=== PATIENT | male | born 1940 | race Caucasian/White ===

== ENCOUNTER → 2017-08-25 | Outpatient (CLI) | payer MEDICARE, OTHER ==
[~2017-08-25] MED LIST: AMLO1TAB67 PO; BENICAR PO; GLUC100026 PO; IOPAMIDOL 76% 50 ML INFUS BTL 50 ML ONE; IOPAMIDOL 76% 75 ML INFUS BTL 75 ML ONE; MULT-865 PO; OLM20 PO; PNEI IJ; PNEU0.5D3 IM; [UNRECOGNIZED DRUG - OTHER] PO
--- NOTE | 2017-08-25 12:10 | RADIOLOGY IMAGING REPORT ---
FACILITY: [facility] PATIENT NAME: Manny Bowles : 1940 MR: [id number] V: [id number] EXAM DATE: ORDERING PHYSICIAN: AGNES OPSADA TECHNOLOGIST: Location: [facility] Patient: Manny Bowles : 1940 Visit/Account:[id number] Date of Sevice: 08/25/2017 CTA CHEST ABD PEL W WO CONT HISTORY: Abdominal aortic aneurysm; follow-up. TECHNIQUE: CT angiography of the chest, abdomen and pelvis with intravenous contrast. Sagittal, cor onal and slab 3D coronal MIP reconstructed images were also created for further evaluation and interp retation. One of the following dose optimization techniques was utilized in the performance of this exam: Autom ated exposure control; adjustment of the mA and/or kV according to the patient's size; or use of an i terative reconstruction technique. Specific details can be referenced in the facility's radiology C T exam operational policy. CONTRAST: 120 mL Isovue-370 IV COMPARISON: 09/13/2016 FINDINGS: VASCULAR FINDINGS: Heart size normal. Atherosclerotic calcifications coronary arteries. Thoracic aorta mildly atherosclerotic but normal caliber and without evidence of dissection or lumina l narrowing. Ascending aorta 3.7 cm maximum diameter. Abdominal aorta moderately to severely atherosclerotic. Infrarenal abdominal aortic aneurysm status post bifurcated endoluminal stent repair. [place] aneurysm sac now 5.4 x 5.1 cm in greatest transvers e and AP dimensions (previously 5.5 x 5.4 cm utilizing similar measurement technique). Previously de scribed site of type II endoleak at the L2 level only faintly persists and is less apparent than on p rior exam (series 5/image 114). Additional previously described site of tight II endoleak resolved. No new or worsening leak. Stent graft stable in position. Separate origins splenic and common hepatic arteries, normal variant. 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 NONVASCULAR FINDINGS: Chest: Calcified left upper lobe pulmonary nodule and left hilar lymph nodes consistent with benign granulom as. No adenopathy. Very mild and benign-appearing biapical pleural parenchymal pulmonary scarring. Micronodules within the lateral left lung base and along right minor fissure are unchanged. Degener ative changes thoracic spine. Abdomen/pelvis: Several too small to characterize low attenuating hepatic lesions, likely cysts. Numerous small ston es within an otherwise unremarkable appearing gallbladder. Punctate calcifications within spleen con sistent with benign granulomas. Pancreas, adrenals and right kidney unremarkable. Two small to ari acterize low attenuating lesion left renal cortex, likely cyst. Severe diverticulosis sigmoid colon. No adenopathy. No free fluid. Very small fat-containing left inguinal hernia. Likely sequela of prior left inguinal hernia repair. Sequela of left femoral cutdown. Degenerative changes lumbar spi ne. Chronic mildly severe compression deformity of L4 vertebral body. IMPRESSION: 1. Abdominal aortic aneurysm status post endograft repair. Previously described larger type II endo leak has decreased in size. Previously described smaller type II endoleak has resolved. [place] aneu rysm sac diameters have slightly decreased, now 5.4 x 5.1 cm (previously 5.5 x 5.4 cm). 2. Other chronic and/or benign-appearing changes detailed above. Report Dictated By: Tulio Mullen MD at 08/25/2017 11:28 AM Report E-Signed By: Tulio Mullen MD at 08/25/2017 12:06 PM WSN:[id number]
== END ==
LOC: CT 04:19
PROVIDERS: ATTEND Radiology Vascular & Interventional Radiology
DX: I71.4 Abdominal aortic aneurysm, without rupture (principal); Z95.828 Presence of other vascular implants and grafts
CPT/HCPCS: 71275; 74174; Q9967

== ENCOUNTER → 2018-03-07 | Outpatient (CLI) | payer MEDICARE, OTHER ==
[~2018-03-07] MED LIST changes: +ASCO-182 PO; +CALC-515 PO; -IOPAMIDOL 76% 50 ML INFUS BTL 50 ML ONE; -IOPAMIDOL 76% 75 ML INFUS BTL 75 ML ONE
== END ==
LOC: LAB 13:12
PROVIDERS: ATTEND Radiology Vascular & Interventional Radiology
DX: I71.4 Abdominal aortic aneurysm, without rupture (principal); T82.330D Leakage of aortic (bifurcation) graft (replacement), subsequent encounter
CPT/HCPCS: 36415; 82565

== ENCOUNTER 2018-07-27 03:34 | Day surgery (SDC) | payer MEDICARE, OTHER ==
[~2018-07-27] VITALS: Ht 172.7 cm; Wt 70.8 kg
[2018-07-27 13:15] VITALS: BP 128/69
[2018-07-27] MEDS: OPHTHALMIC PROCEDURE 2 OS PRN ×2 (13:38→13:43)
[2018-07-27] MEDS ORDERED: NORMOSOL R SOLN(*) 1000 ML BAG 1,000 ML IV PRN (14:00)
[2018-07-27] MEDS ORDERED: acetaZOLAMIDE 500 MG CAPCR PO ONE (14:00)
[2018-07-27] MEDS ORDERED: OPHTHALMIC PROCEDURE 1 OS PRN (14:00)
[2018-07-27] MEDS ORDERED: LIDOCAINE/SOD BICARB 8.4% SYR ID ONE (14:00)
[2018-07-27] MEDS ORDERED: OPHTHALMIC PROCEDURE 2 OS PRN (14:00)
[2018-07-27 14:13] VITALS: BP 156/85
[2018-07-27 15:01] VITALS: BP 156/85
--- NOTE | 2018-07-27 17:39 | FOSTER LEFT EYE CATARACT ---
EVENT DATE: July 27, 2018 SURGEON: Fabricio Carver MD ANESTHESIOLOGIST: Aditya Sy MD ANESTHESIA: MAC PREOPERATIVE DIAGNOSIS Cataract, left eye. POSTOPERATIVE DIAGNOSIS Cataract, left eye. PROCEDURE Phacoemulsification of cataractous lens with implantation of an intraocular lens, left eye. DESCRIPTION OF PROCEDURE The risks, benefits, and alternatives were carefully discussed with the patient, and preoperative consent was obtained. The patient was brought to the operating room after receiving topical anesthetic. The patient was prepped and draped using sterile technique in the usual manner. A stab incision was made, and the chamber was inflated with preservative-free lidocaine. DuoVisc was injected to inflate the chamber. A 2.2 mm blade was used to enter the anterior chamber. Utrata forceps were used to tear a circular capsulorrhexis. BSS was used to hydrodissect the nucleus. Phaco tip was introduced, and the nucleus was chopped into four quadrants. Each quadrant was removed. The I/A tip was used to remove the cortex. The bag was inflated with ProVisc. The intraocular lens was injected into the capsular bag. The I/A tip was used to remove the ProVisc. The wound was found to be watertight. Vigamox, Nevanac, and Maxitrol ointment were placed in the patient's eye. The patient's eye was patched, and the patient was taken to the recovery room in stable condition. The patient was examined in the recovery room and found to be stable prior to release from the hospital. REKHA
== END 2018-07-27 15:40 | disposition home or self-care (01) ==
LOC: OR 03:34
PROVIDERS: ATTEND Ophthalmology
DX: H25.12 Age-related nuclear cataract, left eye (principal)
CPT/HCPCS: 66984; A9270; V2632